=== PATIENT | male | born 1965 | race Two or more races ===

== ENCOUNTER 2023-08-14 21:54 | Emergency (ER) | payer OTHER ==
[2023-08-14] MEDS ORDERED: Ibuprofen 200 MG TAB ONE (22:13)
== END 2023-08-14 23:14 | disposition home or self-care (01) ==
LOC: NAV ERS 21:54
DX: S70.02XA Contusion of left hip, initial encounter (principal); J06.9 Acute upper respiratory infection, unspecified; B34.9 Viral infection, unspecified; I10 Essential (primary) hypertension; J44.9 Chronic obstructive pulmonary disease, unspecified; Z87.891 Personal history of nicotine dependence; W22.8XXA Striking against or struck by other objects, initial encounter
CPT/HCPCS: 72170; 87804; 87807